=== PATIENT | male | born 2000 | race African-American/Black ===

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

== ENCOUNTER 2020-01-22 08:13 | Emergency (ER) | payer BC, OTHER ==
[2020-01-23 13:41] LABS: SARS-CoV-2 MS2 Positive; SARS-CoV-2 N Gene Positive; SARS-CoV-2 S Gene Positive; SARS-CoV-2 orf1ab Positive
== END 2020-01-22 08:55 | disposition home or self-care (01) ==
LOC: NAV ERS 08:13
DX: U07.1 COVID-19 (principal)
CPT/HCPCS: 87635; 99283; U0003